=== PATIENT | male | born 1965 | race Caucasian/White ===

== ENCOUNTER 2021-05-09 14:07 | Inpatient (IN) | payer SELFPAY ==
[2021-05-09] MEDS ORDERED: ACETAMINOPHEN 500 MG TAB PO ONE (17:45)
[2021-05-09] MEDS ORDERED: dexAMETHasone 4 MG/ML VIAL IV ONE (17:48)
[2021-05-09] MEDS ORDERED: SODIUM CHLORIDE 0.9% 1000 ML 1,000 ML IV ONE (17:49)
--- NOTE | 2021-05-09 17:50 | XRay Report ---
CHEST 1 VIEW 05/09/2021 5:31 PM INDICATION / CLINICAL INFORMATION: Covid positive ,hypoxia. COMPARISON: None available. FINDINGS: SUPPORT DEVICES: None. HEART / MEDIASTINUM: No significant abnormality. LUNGS / PLEURA: There are low lung volumes. There is minimal parenchymal opacity in the lung bases. N o pneumothorax. ADDITIONAL FINDINGS: None IMPRESSION: 1. There are low lung volumes. There is minimal parenchymal opacity in the lung bases. Signer Name: Patrick Odell MD Signed: 05/09/2021 5:45 PM Workstation Name: [id number]
--- NOTE | 2021-05-09 18:20 | Emergency Department Report ---
- General Chief Complaint: Upper Respiratory Infection Stated Complaint: SENT BY CLINIC FOR COVID Source: patient Mode of arrival: Ambulatory Limitations: Language Barrier - History of Present Illness Initial Comments: translator interpreter used; 55 y/o female present to Ed complain of cough ,fever ,chills x 4 days .Patient was evaluate at [facility] had positive Covid Positive.patient states taking ibuprofen 800 mg x 1 without any relief. Patient is unvaccinated for COVID. Patient denies any chest pain. Patient stated that shortness of breath started today. No acute distress noted .no ill appearance noted. Patient is alert and oriented x4 MD Complaint: fever, cough Onset/Timin -: days(s) Improves With: nothing Worsens With: nothing Context: sick contacts Associated Symptoms: denies other symptoms Treatments Prior to Arrival: none - Related Data Allergies Allergy/AdvReac Type Severity Reaction Status Date / Time No Known Allergies Allergy Unverified 05/09/21 15:19 ED Review of Systems ROS: Stated complaint: SENT BY CLINIC FOR COVID Other details as noted in HPI Constitutional: chills, fever, malaise, weakness Eyes: denies: eye pain, eye discharge, vision change ENT: denies: ear pain, throat pain Respiratory: cough, shortness of breath. denies: wheezing Cardiovascular: denies: chest pain, palpitations Endocrine: no symptoms reported Gastrointestinal: denies: abdominal pain, nausea, diarrhea Genitourinary: denies: urgency, dysuria Musculoskeletal: denies: back pain, joint swelling, arthralgia Skin: denies: rash, lesions Neurological: denies: headache, weakness, paresthesias Psychiatric: denies: anxiety, depression Hematological/Lymphatic: denies: easy bleeding, easy bruising ED Physical Exam - General Limitations: Language Barrier General appearance: alert, in no apparent distress - Head Head exam: Present: atraumatic, normocephalic - Eye Eye exam: Present: normal appearance - ENT ENT exam: Present: mucous membranes moist - Neck Neck exam: Present: normal inspection - Respiratory Respiratory exam: Present: normal lung sounds bilaterally. Absent: respiratory distress, wheezes, rales - Cardiovascular Cardiovascular Exam: Present: regular rate, tachycardia. Absent: systolic murmur, diastolic murmur, rubs, gallop - GI/Abdominal GI/Abdominal exam: Present: soft, normal bowel sounds - Rectal Rectal exam: Present: deferred - Extremities Exam Extremities exam: Present: normal inspection - Back Exam Back exam: Present: normal inspection - Neurological Exam Neurological exam: Present: alert, oriented X3 - Psychiatric Psychiatric exam: Present: normal affect, normal mood - Skin Skin exam: Present: warm, dry, intact, normal color. Absent: rash ED Course Vital Signs 05/09/21 15:18 Temperature 103 F H Pulse Rate 124 H Respiratory 18 Rate Blood Pressure 157/86 [Right] O2 Sat by Pulse 92 Oximetry ED Medical Decision Making - Radiology Data Radiology results: report reviewed [facility] [address] [place] [address] XRay Report Signed Patient: DEAN OSORIO MR# : [id number] : 1965 Acct:[id number] Age/Sex: 55 / M ADM Date: 05/09/21 Loc: ED Attending Dr: Ordering Physician: ADALBERTO PURDY Date of Service: 05/09/21 Procedure(s): XR chest 1V ap Accession Number(s): [id number] cc: ADALBERTO PURDY Fluoro Time In Minutes: CHEST 1 VIEW 05/09/2021 5:31 PM INDICATION / CLINICAL INFORMATION: Covid positive ,hypoxia. COMPARISON: None available. FINDINGS: SUPPORT DEVICES: None. HEART / MEDIASTINUM: No significant abnormality. LUNGS / PLEURA: There are low lung volumes. There is minimal parenchymal opacity in the lung bases. No pneumothorax. ADDITIONAL FINDINGS: None IMPRESSION: 1. There are low lung volumes. There is minimal parenchymal opacity in the lung bases. Signer Name: Patrick Odell MD Signed: 05/09/2021 5:45 PM Workstation Name: [id number] Transcribed By: Dictated By: Patrick Odell MD Electronically Authenticated By: Patrick Odell MD Signed Date/Time: 05/09/21 6019 - Medical Decision Making translator interpreter used; 55 y/o female present to Ed complain of cough ,fever ,chills x 4 days .Patient was evaluate at [facility] had positive Covid Positive.patient states taking ibuprofen 800 mg x 1 without any relief. Patient is unvaccinated for COVID. Patient denies any chest pain. Patient stated that shortness of breath started today. No acute distress noted .no ill appearance noted. Patient is alert and oriented x4 . Patient had a walking O2 sat at 88- 89 percent . Critical care attestation.: If time is entered above; I have spent that time in minutes in the direct care of this critically ill patient, excluding procedure time. ED Disposition Disposition: ADMITTED INPATIENT Is pt being admited?: Yes Condition: Stable Referrals: PRIMARY CARE, [Primary Care Provider] - 3-5 Days
[2021-05-09 18:21] LABS: Hematocrit 45.7 % (35.5-45.6); Hemoglobin 15.3 gm/dl (11.8-15.2); Mean Corpuscular HGB Conc 33 % (32-34); Mean Corpuscular Volume 93 fl (84-94); Platelet Count 179 K/mm3 (140-440); Red Blood Count 4.92 M/mm3 (3.65-5.03)
[2021-05-09] MEDS ORDERED: cefTRIAXone/NS 1 GM/50 ML 1 GM/50 ML BAG IV ONE (18:32)
[2021-05-09 18:49] LABS: Albumin 3.9 g/dL (3.9-5); C-Reactive Protein 34.7 mg/dL (0.00-1.30)
[2021-05-09 18:52] LABS: Band Neutrophils # (Manual) 0.5 K/mm3; Basophils % (Manual) 0 % (0.0-1.8); Eosinophils % (Manual) 0 % (0.0-4.3); Total Cells Counted 100
[2021-05-09 18:53] LABS: Dohle Bodies Rare; Platelet Estimate Consistent w Auto; RBC Morphology Normal; Toxic Granulation 1+
--- NOTE | 2021-05-09 19:30 | History and Physical Report ---
History of Present Illness Chief complaint: I am sick History of present illness: 55 YO Male with no past medical history presents ED for evaluation. Patient reports "I feel sick". Patient states that he had experienced fever, shaking chills, dry cough, diminished sense of smell, diminished sense of taste, malaise, body aches over the past 1 week with worsening symptoms over the past 4 days. Patient underwent coronavirus test as outpatient and was found to be coronavirus positive. Patient transported to [facility] via private vehicle for further care and evaluation of the aforementioned symptoms. The patient was s een and evaluated in the emergency department. All lab and imaging studies reviewed. Patient found to have a pulse oximetry of 88% on room air with exertion which is consistent with acute approximate respiratory failure. Patient found to have a temperature of 103 F, a heart rate in the 120s and respiratory rate in the 30s. Chest x-ray revealed pneumonia complicated by sepsis. Patient admitted to [facility] and initiated on sepsis protocol, pneumonia protocol as well as coronavirus protocol. Patient denies fever but denies chest pain, palpitation, skin rash, trauma, unilateral leg swelling, calf pain, individual/family history of DVT/PE/bleeding/blood clotting disorders. No prior admission for review. No medication listed at time of admission for reconciliation. Advanced care planning conducted in ED. Past History Past Medical History: No medical history, other (See HPI) Past Surgical History: No surgical history, Other (Reviewed) Social history: . denies: smoking, alcohol abuse, prescription drug abuse Family history: hypertension Medications and Allergies Allergies Allergy/AdvReac Type Severity Reaction Status Date / Time No Known Allergies Allergy Unverified 05/09/21 15:19 Active Meds: Active Medications Sodium Chloride (Nacl 0.9% 1000 Ml) 1,000 mls @ 250 mls/hr IV ONCE ONE Stop: 05/09/21 21:48 Last Admin: 05/09/21 18:41 Dose: 250 mls/hr Azithromycin (Zithromax/Ns) 500 mg in 250 mls @ 250 mls/hr IV ONCE ONE; Protocol Stop: 05/09/21 20:31 Review of Systems Constitutional: fever, chills, fatigue, weakness, malaise Ears, nose, mouth and throat: other (Loss of sense of smell, loss of sense of t aste), no ear pain, no tinnitis, no decreased hearing, no nasal congestion, no nasal discharge Cardiovascular: no chest pain, no orthopnea, no palpitations, no rapid/irregular heart beat Respiratory: cough, no cough with sputum, no excessive sputum, no hemoptysis Gastrointestinal: no nausea, no vomiting, no diarrhea Genitourinary Male: no hematuria, no flank pain, no discharge, no urinary frequency, no urinary hesitancy Rectal: no pain, no incontinence, no bleeding Musculoskeletal: no neck stiffness, no shooting arm pain, no arm numbness/tingli ng, no shooting leg pain Integumentary: no rash, no sores, no wounds, no boils Neurological: no head injury, no paralysis, no parathesias, no tingling, no syncope, no tremors Psychiatric: no anxiety, no change in sleep habits, no hypersomnia, no change in libido, no suicidal ideation Endocrine: no heat intolerance, no excessive thirst, no polydipsia, no nocturia, no excessive sweating Hematologic/Lymphatic: no easy bruising, no easy bleeding Allergic/Immunologic: no urticaria, no wheezing Exam - Constitutional Vitals: Temp Pulse Resp BP Pulse Ox 99.4 F 100 H 13 131/75 98 05/09/21 18:22 05/09/21 18:22 05/09/21 18:41 05/09/21 18:22 05/09/21 18:23 General appearance: Present: mild distress - EENT Eyes: Present: PERRL ENT: hearing intact, clear oral mucosa - Neck Neck: Present: supple, normal ROM - Respiratory Respiratory effort: labored, accessory muscle use, stridor Respiratory: bilateral: diminished, rhonchi - Cardiovascular Heart Sounds: Present: S1 & S2. Absent: rub, click - Extremities Extremities: pulses symmetrical, No edema Peripheral Pulses: abnormal (Capillary refill greater than 3.5 seconds) - Abdominal General gastrointestinal: Present: soft, non-tender, non-distended, normal bowel sounds Male genitourinary: Present: normal - Integumentary Integumentary: Present: clear, warm, dry - Musculoskeletal Musculoskeletal: generalized weakness - Psychiatric Psychiatric: appropriate mood/affect, intact judgment & insight - Neurologic Neurologic: CNII-XII intact, moves all extremities Results - Labs CBC & Chem 7: 05/09/21 17:46 05/09/21 18:15 Labs: Abnormal lab results 05/09/21 05/09/21 05/09/21 Range/Units 17:46 18:15 18:15 WBC 27.0 H (4.5-11.0) K/mm3 Hgb 15.3 H (11.8-15.2) gm/dl Hct 45.7 H (35.5-45.6) % Seg Neuts % (Manual) 88.0 H (40.0-70.0) % Lymphocytes % (Manual) 6.0 L (13.4-35.0) % Seg Neutrophils # Man 23.8 H (1.8-7.7) K/mm3 Monocytes # (Manual) 1.1 H (0.0-0.8) K/mm3 D-Dimer 684.91 H (0-234) ng/mlDDU Sodium 133 L (137-145) mmol/L Potassium 3.5 L (3.6-5.0) mmol/L Chloride 94.6 L (98-107) mmol/L BUN 23 H (9-20) mg/dL Glucose 286 H (75-100) mg/dL Ferritin (30.0-300.0) ng/mL Total Bilirubin 1.30 H (0.1-1.2) mg/dL Lactate Dehydrogenase 268 H (91-180) units/L C-Reactive Protein 34.70 H (0.00-1.30) mg/dL 05/09/21 Range/Units 18:15 WBC (4.5-11.0) K/mm3 Hgb (11.8-15.2) gm/dl Hct (35.5-45.6) % Seg Neuts % (Manual) (40.0-70.0) % Lymphocytes % (Manual) (13.4-35.0) % Seg Neutrophils # Man (1.8-7.7) K/mm3 Monocytes # (Manual) (0.0-0.8) K/mm3 D-Dimer (0-234) ng/mlDDU Sodium (137-145) mmol/L Potassium (3.6-5.0) mmol/L Chloride (98-107) mmol/L BUN (9-20) mg/dL Glucose (75-100) mg/dL Ferritin 864.0 H (30.0-300.0) ng/mL Total Bilirubin (0.1-1.2) mg/dL Lactate Dehydrogenase (91-180) units/L C-Reactive Protein (0.00-1.30) mg/dL Assessment and Plan - Patient Problems (1) Sepsis Current Visit: Yes Status: Acute Plan to address problem: Sepsis protocol: CBC, CMP, supplemental oxygen, nebulizer therapy, IV antibiotic therapy, IV fluid resuscitation therapy, serial lactic acid level, blood culture. Maintain mean arterial pressure greater than or equal to 65. Chest x- ray, urinalysis. (2) Pneumonia Current Visit: Yes Status: Acute Plan to address problem: Pneumonia protocol: Chest x-ray, CBC, CMP, supplemental oxygen, pulse oximetry, nebulizer therapy, pulmonary toilet. (3) Acute hypoxemic respiratory failure Current Visit: Yes Status: Acute Plan to address problem: Chest x-ray, supplemental oxygen, pulse oximetry, nebulizer therapy, pulmonary toilet, will consider supplemental oxygen via high flow nasal cannula if patient is unable to maintain pulse oximetry on Puls oxymetry via nasal cannula. (4) Coronavirus infection Current Visit: Yes Status: Acute Plan to address problem: Coronavirus protocol: IV antibiotic therapy, IV steroid therapy, vitamin C therapy, vitamin D therapy, zinc therapy, prophylactic anticoagulation (5) DVT prophylaxis Current Visit: Yes Status: Acute Plan to address problem: SCD to bilateral lower extremities while in bed, prophylactic anticoagulation (6) Advance care planning Current Visit: Yes Status: Acute Plan to address problem: Disease education conducted, care plan discussed, diagnosis discussed, prognosis discussed, patient is full code, patient knowledge understanding agreement with care plan, +30 minutes.
[2021-05-09] MEDS ORDERED: AZITHROMYCIN/NS 500 MG/250 ML 500 MG/250 ML BAG IV ONE (19:32)
[2021-05-09] MEDS ORDERED: ALBUTEROL 2.5 MG/3 ML NEBU IH PRN (19:35)
[2021-05-09] MEDS ORDERED: ACETAMINOPHEN 325 MG TAB PO PRN (19:35)
[2021-05-09] MEDS ORDERED: VANCOMYCIN 1,750 MG in SODIUM CHLORIDE 0.9% 500 ML 500 ML IV ONE (19:35)
[2021-05-09] MEDS ORDERED: SODIUM CHLORIDE 0.9% 1000 ML IV SOLN IV ONE (19:35)
[2021-05-09] MEDS ORDERED: HYDROmorphone 1 MG/1 ML INJ IV PRN ×2 (19:35)
[2021-05-09] MEDS ORDERED: oxyCODONE /ACETAMINOPHEN 5-325MG TAB PO PRN (19:35)
[2021-05-09] MEDS ORDERED: VANCOMYCIN PHARMACY TO DOSE IV SCH (20:00)
[2021-05-09] MEDS: methylPREDNISolone Sod Succinate 40 MG/1 ML INJ IV SCH (21:35)
[2021-05-09] MEDS: CEFEPIME/NS 2 GM/100 ML 2 GM/100 ML BAG IV SCH (21:35)
[2021-05-09] MEDS: HEPARIN 5,000 UNIT/1 ML VIAL SUB-Q SCH (21:35)
[2021-05-09] MEDS: ZINC SULFATE 220 MG CAP PO SCH (21:36)
[2021-05-09] MEDS: ASCORBIC ACID 500 MG TAB PO SCH (21:36)
[2021-05-09] MEDS: VANCOMYCIN 1,750 MG in SODIUM CHLORIDE 0.9% 500 ML 500 ML IV SCH (21:36)
[2021-05-10 05:42] LABS: Hematocrit 44.8 % (35.5-45.6); Mean Corpuscular HGB Conc 34 % (32-34); Mean Corpuscular Volume 94 fl (84-94); Platelet Count 229 K/mm3 (140-440); Red Blood Count 4.77 M/mm3 (3.65-5.03); Red Cell Distribution Width 14.8 % (13.2-15.2)
[2021-05-10 06:02] LABS: BUN/Creatinine Ratio TNR; Blood Urea Nitrogen TNR mg/dL (9-20)
[2021-05-10 06:03] LABS: Alanine Aminotransferase TNR units/L (7-56); Albumin TNR g/dL (3.9-5); Calcium TNR mg/dL (8.4-10.2)
[2021-05-10 06:04] LABS: Hemolysis Index TNR
[2021-05-10 06:29] LABS: Basophils % (Manual) 0 % (0.0-1.8); Eosinophils % (Manual) 0 % (0.0-4.3); Total Cells Counted 100
[2021-05-10 06:30] LABS: Large Platelets Rare; Platelet Estimate Consistent w Auto; RBC Morphology Normal
--- NOTE | 2021-05-10 09:21 | Progress Note ---
Assessment and Plan Assessment and plan: History of present illness: 55 YO Male with no past medical history presents ED for evaluation. Patient reports "I feel sick". Patient states that he had experienced fever, shaking chills, dry cough, diminished sense of smell, diminished sense of taste, malaise, body aches over the past 1 week with worsening symptoms over the past 4 days. Patient underwent coronavirus test as outpatient and was found to be coronavirus positive. Patient transported to [facility] via private vehicle for further care and evaluation of the aforementioned symptoms. The patient was seen and evaluated in the emergency department. All lab and imaging studies reviewed. Patient found to have a pulse oximetry of 88% on room air with exertion which is consistent with acute approximate respiratory failure. Patient found to have a temperature of 103 F, a heart rate in the 120s and respiratory rate in the 30s. Chest x-ray revealed pneumonia complicated by sepsis. Patient admitted to [facility] and initiated on sepsis protocol, pneumonia protocol as well as coronavirus protocol. Patient denies fever but denies chest pain, palpitation, skin rash, trauma, unilateral leg swelling, calf pain, timi vidual/family history of DVT/PE/bleeding/blood clotting disorders. No prior admission for review. No medication listed at time of admission for reconciliation. Advanced care planning conducted in ED. Hospital Course to Date: 05/10/2021:RT PCR pending. Currently off of oxygen. Downgrade to med/surgery. Assessment and Plan: (1) Sepsis Current Visit: Yes Status: Acute Plan to address problem: Sepsis protocol: CBC, CMP, supplemental oxygen, nebulizer therapy, IV antibiotic therapy, IV fluid resuscitation therapy, serial lactic acid level, blood culture. Maintain mean arterial pressure greater than or equal to 65. Chest x- ray, urinalysis. (2) Pneumonia Current Visit: Yes Status: Acute Plan to address problem: Pneumonia protocol: Chest x-ray, CBC, CMP, supplemental oxygen, pulse oximetry, nebulizer therapy, pulmonary toilet. (3) Acute hypoxemic respiratory failure Current Visit: Yes Status: Acute Plan to address problem: Chest x-ray, supplemental oxygen, pulse oximetry, nebulizer therapy, pulmonary toilet, will consider supplemental oxygen via high flow nasal cannula if patient is unable to maintain pulse oximetry on Puls oxymetry via nasal cannula. (4) Coronavirus infection Current Visit: Yes Status: Acute Plan to address problem: Coronavirus protocol: IV antibiotic therapy, IV steroid therapy, vitamin C therapy, vitamin D therapy, zinc therapy, prophylactic anticoagulation (5) DVT prophylaxis Current Visit: Yes Status: Acute Plan to address problem: SCD to bilateral lower extremities while in bed, prophylactic anticoagulation (6) Advance care planning Current Visit: Yes Status: Acute Plan to address problem: Disease education conducted, care plan discussed, diagnosis discussed, prognosis discussed, patient is full code, patient knowledge understanding agreement with care plan, +30 minutes. The high probability of a clinically significant, sudden or life threatening deterioration of the [pulmonary, ID] system(s) required my full and direct attention, intervention and personal management. The aggregate critical care time was [60] minutes. This time is in addition to time spent performing reported procedures but includes the following: [x] Data Review and interpretation [x] Patient assessment and monitoring of vital signs [x] Documentation [x] Medication orders and management History Interval history: NO acute complaints resting comfortably on my exam. Hospitalist Physical - Physical exam Narrative exam: Physical Exam: VITAL SIGNS: Reviewed. GENERAL: The patient appears normally developed, Vital signs as documented. HEAD: No signs of head trauma. EYES: Pupils are equal. Extraocular motions intact. EARS: Hearing grossly intact. MOUTH: Oropharynx is normal. NECK: No adenopathy, no JVD. CHEST: Chest with clear breath sounds bilaterally. No wheezes, rales, or rhonchi. CARDIAC: Regular rate and rhythm. S1 and S2, without murmurs, gallops, or rubs. VASCULAR: No Edema. Peripheral pulses normal and equal in all extremities. ABDOMEN: Soft, non tender and non distended. No rebound or guarding, and no masses palpated. Bowel Sounds normal. MUSCULOSKELETAL: Good range of motion of all major joints. Extremities without clubbing, cyanosis or edema. NEUROLOGIC EXAM: Alert and oriented x 4. no focal sensory or strength deficits. PSYCHIATRIC: Mood normal. SKIN: detail exam as documented in skin assessment - Constitutional Vitals: Temp Pulse Resp BP Pulse Ox 97.6 F 74 18 131/77 94 05/10/21 09:05 05/10/21 08:16 05/10/21 08:16 05/10/21 08:16 05/10/21 08:16 General appearance: Present: mild distress Results - Labs CBC & Chem 7: 05/10/21 04:31 05/10/21 12:04 Labs: Laboratory Last Values WBC 20.9 K/mm3 (4.5-11.0) H 05/10/21 04:31 RBC 4.77 M/mm3 (3.65-5.03) 05/10/21 04:31 Hgb 15.0 gm/dl (11.8-15.2) 05/10/21 04:31 Hct 44.8 % (35.5-45.6) 05/10/21 04:31 MCV 94 fl (84-94) 05/10/21 04:31 MCH 31 pg (28-32) 05/10/21 04:31 MCHC 34 % (32-34) 05/10/21 04:31 RDW 14.8 % (13.2-15.2) 05/10/21 04:31 Plt Count 229 K/mm3 (140-440) 05/10/21 04:31 Add Manual Diff Complete 05/10/21 04:31 Total Counted 100 05/10/21 04:31 Seg Neutrophils % Engineering Geologist 05/10/21 04:31 Seg Neuts % (Manual) 95.0 % (40.0-70.0) H 05/10/21 04:31 Band Neutrophils % 0 % 05/10/21 04:31 Lymphocytes % (Manual) 4.0 % (13.4-35.0) L 05/10/21 04:31 Reactive Lymphs % (Man) 0 % 05/10/21 04:31 Monocytes % (Manual) 1.0 % (0.0-7.3) 05/10/21 04:31 Eosinophils % (Manual) 0 % (0.0-4.3) 05/10/21 04:31 Basophils % (Manual) 0 % (0.0-1.8) 05/10/21 04:31 Metamyelocytes % 0 % 05/10/21 04:31 Myelocytes % 0 % 05/10/21 04:31 Promyelocytes % 0 % 05/10/21 04:31 Blast Cells % 0 % 05/10/21 04:31 Nucleated RBC % Not Reportable 05/10/21 04:31 Seg Neutrophils # Man 19.9 K/mm3 (1.8-7.7) H 05/10/21 04:31 Band Neutrophils # 0.0 K/mm3 05/10/21 04:31 Lymphocytes # (Manual) 0.8 K/mm3 (1.2-5.4) L 05/10/21 04:31 Abs React Lymphs (Man) 0.0 K/mm3 05/10/21 04:31 Monocytes # (Manual) 0.2 K/mm3 (0.0-0.8) 05/10/21 04:31 Eosinophils # (Manual) 0.0 K/mm3 (0.0-0.4) 05/10/21 04:31 Basophils # (Manual) 0.0 K/mm3 (0.0-0.1) 05/10/21 04:31 Metamyelocytes # 0.0 K/mm3 05/10/21 04:31 Myelocytes # 0.0 K/mm3 05/10/21 04:31 Promyelocytes # 0.0 K/mm3 05/10/21 04:31 Blast Cells # 0.0 K/mm3 05/10/21 04:31 WBC Morphology Not Reportable 05/10/21 04:31 Hypersegmented Neuts Not Reportable 05/10/21 04:31 Hyposegmented Neuts Not Reportable 05/10/21 04:31 Hypogranular Neuts Not Reportable 05/10/21 04:31 Smudge Cells Not Reportable 05/10/21 04:31 Toxic Granulation Not Reportable 05/10/21 04:31 Toxic Vacuolation Not Reportable 05/10/21 04:31 Dohle Bodies Not Reportable 05/10/21 04:31 Pelger-Huet Anomaly Not Reportable 05/10/21 04:31 Mariana Rods Not Reportable 05/10/21 04:31 Platelet Estimate Consistent w auto 05/10/21 04:31 Clumped Platelets Not Reportable 05/10/21 04:31 Plt Clumps, EDTA Not Reportable 05/10/21 04:31 Large Platelets Rare 05/10/21 04:31 Giant Platelets Not Reportable 05/10/21 04:31 Platelet Satelliting Not Reportable 05/10/21 04:31 Plt Morphology Comment Not Reportable 05/10/21 04:31 RBC Morphology Normal 05/10/21 04:31 Dimorphic RBCs Not Reportable 05/10/21 04:31 Polychromasia Not Reportable 05/10/21 04:31 Hypochromasia Not Reportable 05/10/21 04:31 Poikilocytosis Not Reportable 05/10/21 04:31 Anisocytosis Not Reportable 05/10/21 04:31 Microcytosis Not Reportable 05/10/21 04:31 Macrocytosis Not Reportable 05/10/21 04:31 Spherocytes Not Reportable 05/10/21 04:31 Pappenheimer Bodies Not Reportable 05/10/21 04:31 Sickle Cells Not Reportable 05/10/21 04:31 Target Cells Not Reportable 05/10/21 04:31 Tear Drop Cells Not Reportable 05/10/21 04:31 Ovalocytes Not Reportable 05/10/21 04:31 Helmet Cells Not Reportable 05/10/21 04:31 [place] Bodies Not Reportable 05/10/21 04:31 [place] Rings Not Reportable 05/10/21 04:31 [place] Cells Not Reportable 05/10/21 04:31 Bite Cells Not Reportable 05/10/21 04:31 Crenated Cell Not Reportable 05/10/21 04:31 Elliptocytes Not Reportable 05/10/21 04:31 Acanthocytes (Spur) Not Reportable 05/10/21 04:31 Rouleaux Not Reportable 05/10/21 04:31 Hemoglobin C Crystals Not Reportable 05/10/21 04:31 Schistocytes Not Reportable 05/10/21 04:31 Malaria parasites Not Reportable 05/10/21 04:31 Vance Bodies Not Reportable 05/10/21 04:31 Hem Pathologist Commnt No 05/10/21 04:31 D-Dimer 684.91 ng/mlDDU (0-234) H 05/09/21 18:15 Sodium TNR 05/10/21 04:31 Potassium TNR 05/10/21 04:31 Chloride TNR 05/10/21 04:31 Carbon Dioxide TNR 05/10/21 04:31 Anion Gap TNR 05/10/21 04:31 BUN TNR 05/10/21 04:31 Creatinine TNR 05/10/21 04:31 Estimated GFR TNR 05/10/21 04:31 BUN/Creatinine Ratio TNR 05/10/21 04:31 Glucose TNR 05/10/21 04:31 Lactic Acid 1.50 mmol/L (0.7-2.0) 05/10/21 01:11 Calcium TNR 05/10/21 04:31 Ferritin 864.0 ng/mL (30.0-300.0) H 05/09/21 18:15 Total Bilirubin TNR 05/10/21 04:31 AST TNR 05/10/21 04:31 ALT TNR 05/10/21 04:31 Alkaline Phosphatase TNR 05/10/21 04:31 Lactate Dehydrogenase 268 units/L (91-180) H 05/09/21 18:15 C-Reactive Protein 34.70 mg/dL (0.00-1.30) H 05/09/21 18:15 Total Protein TNR 05/10/21 04:31 Albumin TNR 05/10/21 04:31 Albumin/Globulin Ratio TNR 05/10/21 04:31 Microbiology: Microbiology 05/09/21 18:15 Peripheral/Venous Blood Culture - Preliminary Culture in Progress 05/09/21 18:19 Peripheral/Venous Blood Culture - Preliminary Culture in Progress Active Medications - Current Medications Current Medications: Generic Name Dose Route Start Last Admin Trade Name Freq PRN Reason Stop Dose Admin Acetaminophen 650 mg 05/09/21 19:35 Acetaminophen 325 Mg Tab PO Q6H PRN Pain, Mild (1-3) Albuterol 2.5 mg 05/09/21 19:35 Albuterol 2.5 Mg/3 Ml Nebu IH Q3HRT PRN Shortness Of Breath Ascorbic Acid 500 mg 05/09/21 22:00 05/09/21 21:36 Ascorbic Acid 500 Mg Tab PO 500 mg BID TRAV Administration Cholecalciferol 1,000 unit 05/10/21 10:00 Cholecalciferol (Vit D3) 1000 Unit (25 Mcg) Tab PO QDAY TRAV Heparin Sodium (Porcine) 5,000 unit 05/09/21 22:00 05/09/21 21:35 Heparin 5,000 Unit/1 Ml Vial SUB-Q 5,000 unit Q12HR TRAV Administration Hydromorphone HCl 0.25 mg 05/09/21 19:35 Hydromorphone 1 Mg/1 Ml Inj IV Q4H PRN Pain, Moderate (4-6) Hydromorphone HCl 0.5 mg 05/09/21 19:35 Hydromorphone 1 Mg/1 Ml Inj IV Q23H PRN Pain , Severe (7-10) Cefepime HCl 2 gm in 100 mls @ 200 mls/hr 05/09/21 22:00 05/09/21 21:35 Cefepime/Ns 2 Gm/100 Ml IV 200 mls/hr Q8H TRAV Administration Protocol Vancomycin HCl 1,750 mg/ 535 mls @ 333 mls/hr 05/09/21 22:00 05/09/21 21:36 Sodium Chloride IV 333 mls/hr Q24H TRAV Administration Protocol Methylprednisolone Sodium Succinate 40 mg 05/09/21 22:00 05/09/21 21:35 Methylprednisolone Sod Succinate 40 Mg/1 Ml Inj IV 40 mg Q8HR TRAV Administration Oxycodone/Acetaminophen 1 tab 05/09/21 19:35 Oxycodone /Acetaminophen 5-325mg Tab PO Q16H PRN Pain, Moderate (4-6) Sodium Chloride 10 ml 05/09/21 22:00 05/09/21 21:35 Sodium Chloride 0.9% 10 Ml Flush Syringe IV 10 ml BID TRAV Administration Sodium Chloride 10 ml 05/09/21 19:35 Sodium Chloride 0.9% 10 Ml Flush Syringe IV PRN PRN LINE FLUSH Zinc Sulfate 220 mg 05/09/21 22:00 05/09/21 21:36 Zinc Sulfate 220 Mg Cap PO 220 mg BID TRAV Administration
[2021-05-10] MEDS: ASCORBIC ACID 500 MG TAB PO SCH ×2 (09:30→22:10)
[2021-05-10] MEDS: CHOLECALCIFEROL (VIT D3) 1000 UNIT (25 mcg) TAB PO SCH (09:30)
[2021-05-10] MEDS: HEPARIN 5,000 UNIT/1 ML VIAL SUB-Q SCH ×2 (09:30→22:10)
[2021-05-10] MEDS: ZINC SULFATE 220 MG CAP PO SCH ×2 (09:30→22:10)
[2021-05-10 13:20] LABS: Alanine Aminotransferase 22 units/L (7-56); Albumin 2.9 g/dL (3.9-5); BUN/Creatinine Ratio 34; Blood Urea Nitrogen 27 mg/dL (9-20); Calcium 8.3 mg/dL (8.4-10.2); Hemolysis Index 8
--- NOTE | 2021-05-10 13:22 | Consultation ---
History of Present Illness - Reason for Consult Consult date: 05/10/21 COVID Requesting physician: MANOLO ARANA - History of Present Illness The patient is a 55-year-old male with no past medical history admitted with fever, chills, dry cough and body aches with worsening shortness of breath over the past 4 days. He tested positive for COVID-19 as an outpatient. Upon evaluation in the ER, had a temperature of 103 F, labs revealed leukocytosis, D-dimer 684, ferritin 864, CRP 34.7. He was hypoxic and placed on nasal cannula. Review of Systems: reviewed in the chart, unable to obtain, minimize risk of transmission Past History Past Medical History: No medical history, other (See HPI) Past Surgical History: No surgical history, Other (Reviewed) Social history: . denies: smoking, alcohol abuse, prescription drug abuse Family history: hypertension Medications and Allergies Allergies Allergy/AdvReac Type Severity Reaction Status Date / Time No Known Allergies Allergy Verified 05/10/21 07:35 Active Meds: Active Medications Acetaminophen (Acetaminophen 325 Mg Tab) 650 mg PO Q6H PRN PRN Reason: Pain, Mild (1-3) Albuterol (Albuterol 2.5 Mg/3 Ml Nebu) 2.5 mg IH Q3HRT PRN PRN Reason: Shortness Of Breath Ascorbic Acid (Ascorbic Acid 500 Mg Tab) 500 mg PO BID [facility] Last Admin: 05/10/21 09:30 Dose: 500 mg Cholecalciferol (Cholecalciferol (Vit D3) 1000 Unit (25 Mcg) Tab) 1,000 unit PO QDAY [facility] Last Admin: 05/10/21 09:30 Dose: 1,000 unit Heparin Sodium (Porcine) (Heparin 5,000 Unit/1 Ml Vial) 5,000 unit SUB-Q Q12HR [facility] Last Admin: 05/10/21 09:30 Dose: 5,000 unit Hydromorphone HCl (Hydromorphone 1 Mg/1 Ml Inj) 0.25 mg IV Q4H PRN PRN Reason: Pain, Moderate (4-6) Hydromorphone HCl (Hydromorphone 1 Mg/1 Ml Inj) 0.5 mg IV Q23H PRN PRN Reason: Pain , Severe (7-10) Cefepime HCl (Cefepime/Ns 2 Gm/100 Ml) 2 gm in 100 mls @ 200 mls/hr IV Q8H [facility]; Protocol Last Admin: 05/09/21 21:35 Dose: 200 mls/hr Vancomycin HCl 1,750 mg/ (Sodium Chloride) 535 mls @ 333 mls/hr IV Q24H [facility]; Protocol Last Admin: 05/09/21 21:36 Dose: 333 mls/hr Methylprednisolone Sodium Succinate (Methylprednisolone Sod Succinate 40 Mg/1 Ml Inj) 40 mg IV Q8HR [facility] Last Admin: 05/09/21 21:35 Dose: 40 mg Oxycodone/Acetaminophen (Oxycodone /Acetaminophen 5-325mg Tab) 1 tab PO Q16H PRN PRN Reason: Pain, Moderate (4-6) Sodium Chloride (Sodium Chloride 0.9% 10 Ml Flush Syringe) 10 ml IV BID [facility] Last Admin: 05/10/21 09:37 Dose: 10 ml Sodium Chloride (Sodium Chloride 0.9% 10 Ml Flush Syringe) 10 ml IV PRN PRN PRN Reason: LINE FLUSH Zinc Sulfate (Zinc Sulfate 220 Mg Cap) 220 mg PO BID [facility] Last Admin: 05/10/21 09:30 Dose: 220 mg Physical Examination - Physical Exam Narrative exam: Physical Exam (reviewed in chart to minimize risk of transmission) Constitutional: deferred Head, Ears, Nose: deferred Eyes: deferred Neck: deferred Oral: deferred Cardiovascular: deferred Respiratory: deferred GI: deferred Musculoskeletal: deferred Skin: deferred Hem/Lymphatic: deferred Psych: deferred Neurological: deferred - Constitutional Vitals: Vital Signs Temp Pulse Resp BP Pulse Ox 98 F 74 15 131/77 97 05/10/21 12:54 05/10/21 08:16 05/10/21 11:48 05/10/21 08:16 05/10/21 11:48 Temperature -Last 24 Hours Temperature 98 F Temperature 97.6 F Temperature 99.4 F Temperature 103 F Results - Labs CBC & Chem 7: 05/10/21 04:31 05/10/21 04:31 Labs: Abnormal lab results 05/09/21 05/09/21 05/09/21 Range/Units 17:46 18:15 18:15 WBC 27.0 H (4.5-11.0) K/mm3 Hgb 15.3 H (11.8-15.2) gm/dl Hct 45.7 H (35.5-45.6) % Seg Neuts % (Manual) 88.0 H (40.0-70.0) % Lymphocytes % (Manual) 6.0 L (13.4-35.0) % Seg Neutrophils # Man 23.8 H (1.8-7.7) K/mm3 Lymphocytes # (Manual) (1.2-5.4) K/mm3 Monocytes # (Manual) 1.1 H (0.0-0.8) K/mm3 D-Dimer 684.91 H (0-234) ng/mlDDU Sodium 133 L (137-145) mmol/L Potassium 3.5 L (3.6-5.0) mmol/L Chloride 94.6 L (98-107) mmol/L BUN 23 H (9-20) mg/dL Glucose 286 H (75-100) mg/dL Ferritin (30.0-300.0) ng/mL Total Bilirubin 1.30 H (0.1-1.2) mg/dL Lactate Dehydrogenase 268 H (91-180) units/L C-Reactive Protein 34.70 H (0.00-1.30) mg/dL 05/09/21 05/10/21 Range/Units 18:15 04:31 WBC 20.9 H (4.5-11.0) K/mm3 Hgb (11.8-15.2) gm/dl Hct (35.5-45.6) % Seg Neuts % (Manual) 95.0 H (40.0-70.0) % Lymphocytes % (Manual) 4.0 L (13.4-35.0) % Seg Neutrophils # Man 19.9 H (1.8-7.7) K/mm3 Lymphocytes # (Manual) 0.8 L (1.2-5.4) K/mm3 Monocytes # (Manual) (0.0-0.8) K/mm3 D-Dimer (0-234) ng/mlDDU Sodium (137-145) mmol/L Potassium (3.6-5.0) mmol/L Chloride (98-107) mmol/L BUN (9-20) mg/dL Glucose (75-100) mg/dL Ferritin 864.0 H (30.0-300.0) ng/mL Total Bilirubin (0.1-1.2) mg/dL Lactate Dehydrogenase (91-180) units/L C-Reactive Protein (0.00-1.30) mg/dL - Imaging and Cardiology Chest x-ray: report reviewed Assessment and Plan Cultures: SARS CoV2 PCR: Positive as outpatient. Pending here. 05/09/2021 blood culture: In process A/P: 55/M with: #Severe sepsis, secondary to bilateral pneumonia: Secondary to COVID-19 #Acute hypoxic respiratory failure: Requiring nasal cannula Recs: -F/U COVID-19 PCR -continue IV/PO Dexamethasone x 10 days -IV remdesivir x 5 days ordered given positive COVID test as outpatient -prophylactic anticoagulation based on d-dimer per hospital protocol -given leucocytosis, continue empiric abx for now f/u cultures -trend ferritin, d-dimer, CRP every 2-3 days Nir Pettit MD, FACP, [facility] O: [phone] F: [phone]
[2021-05-10] MEDS: methylPREDNISolone Sod Succinate 40 MG/1 ML INJ IV SCH ×3 (14:44→23:21)
[2021-05-10] MEDS: CEFEPIME/NS 2 GM/100 ML 2 GM/100 ML BAG IV SCH ×2 (14:45→22:40)
[2021-05-10] MEDS: VANCOMYCIN 1,750 MG in SODIUM CHLORIDE 0.9% 500 ML 500 ML IV SCH (22:10)
[2021-05-11] MEDS: CEFEPIME/NS 2 GM/100 ML 2 GM/100 ML BAG IV SCH ×4 (01:03→23:04)
[2021-05-11] MEDS: methylPREDNISolone Sod Succinate 40 MG/1 ML INJ IV SCH (06:25)
[2021-05-11] MEDS: HEPARIN 5,000 UNIT/1 ML VIAL SUB-Q SCH ×2 (10:46→23:05)
[2021-05-11] MEDS: ZINC SULFATE 220 MG CAP PO SCH (10:46)
[2021-05-11] MEDS: CHOLECALCIFEROL (VIT D3) 1000 UNIT (25 mcg) TAB PO SCH (10:46)
[2021-05-11] MEDS: ASCORBIC ACID 500 MG TAB PO SCH (10:46)
--- NOTE | 2021-05-11 14:35 | Progress Note ---
Assessment and Plan Cultures: SARS CoV2 PCR: Positive as outpatient. Negative here. 05/09/2021 blood culture: no growth A/P: 55/M with: #Severe sepsis, secondary to bilateral pneumonia: Secondary to COVID-19 #Acute hypoxic respiratory failure: Requiring nasal cannula Recs: -COVID negative, agree with stopping steroids and remdesivir -continue Cefepime, Vancomycin -MRSA nasal PCR ordered, if negative, will d/c vancomycin Nir Pettit MD, FACP, [facility] O: [phone] F: [phone] Subjective Date of service: 05/11/21 Interval history: No fever. COVID negative. Objective - Exam Narrative Exam: Physical Exam (reviewed in chart to minimize risk of transmission) Constitutional: deferred Head, Ears, Nose: deferred Eyes: deferred Neck: deferred Oral: deferred Cardiovascular: deferred Respiratory: deferred GI: deferred Musculoskeletal: deferred Skin: deferred Hem/Lymphatic: deferred Psych: deferred Neurological: deferred - Constitutional Vitals: Vital Signs Temp Pulse Resp BP Pulse Ox 98.1 F 87 19 138/77 95 05/11/21 12:30 05/11/21 12:30 05/11/21 12:30 05/11/21 12:30 05/11/21 12:30 Temperature -Last 24 Hours Temperature 98.1 F Temperature 98.3 F Temperature 98.8 F Temperature 97.9 F Temperature 97.8 F - Labs CBC & Chem 7: 05/10/21 04:31 05/10/21 12:04
--- NOTE | 2021-05-11 15:11 | Progress Note ---
Assessment and Plan Assessment and plan: #Sepsis -Leukocytosis improving, afebrile, HR improved -BCx 05/09, NGTD x 24hrs -likely secondary to PNA -will continue vancomycin and cefepime -ID following, assistance appreciated #Acute hypoxic respiratory failure-resolved #Pneumonia -Home oxygen walk test performed, patient did not require oxygen -MRSA PCR ordered -Continue abx as above -Likely secondary to pneumonia -given elevated d-dimer, CTA chest ordered #COVID-19 PUI -Coronavirus PCR negative -Steroids and COVID vitamins discontinued #Hyperglycemia -patient with no hx of diabetes -SSI started -may be secondary to steroids, will order A1C Hospitalist Physical - Constitutional Vitals: Temp Pulse Resp BP Pulse Ox 98.1 F 87 19 138/77 95 05/11/21 12:30 05/11/21 12:30 05/11/21 12:30 05/11/21 12:30 05/11/21 12:30 General appearance: Present: mild distress Results - Labs CBC & Chem 7: 05/10/21 04:31 05/10/21 12:04 Labs: Laboratory Last Values WBC 20.9 K/mm3 (4.5-11.0) H 05/10/21 04:31 RBC 4.77 M/mm3 (3.65-5.03) 05/10/21 04:31 Hgb 15.0 gm/dl (11.8-15.2) 05/10/21 04:31 Hct 44.8 % (35.5-45.6) 05/10/21 04:31 MCV 94 fl (84-94) 05/10/21 04:31 MCH 31 pg (28-32) 05/10/21 04:31 MCHC 34 % (32-34) 05/10/21 04:31 RDW 14.8 % (13.2-15.2) 05/10/21 04:31 Plt Count 229 K/mm3 (140-440) 05/10/21 04:31 Add Manual Diff Complete 05/10/21 04:31 Total Counted 100 05/10/21 04:31 Seg Neutrophils % Archivist 05/10/21 04:31 Seg Neuts % (Manual) 95.0 % (40.0-70.0) H 05/10/21 04:31 Band Neutrophils % 0 % 05/10/21 04:31 Lymphocytes % (Manual) 4.0 % (13.4-35.0) L 05/10/21 04:31 Reactive Lymphs % (Man) 0 % 05/10/21 04:31 Monocytes % (Manual) 1.0 % (0.0-7.3) 05/10/21 04:31 Eosinophils % (Manual) 0 % (0.0-4.3) 05/10/21 04:31 Basophils % (Manual) 0 % (0.0-1.8) 05/10/21 04:31 Metamyelocytes % 0 % 05/10/21 04:31 Myelocytes % 0 % 05/10/21 04:31 Promyelocytes % 0 % 05/10/21 04:31 Blast Cells % 0 % 05/10/21 04:31 Nucleated RBC % Not Reportable 05/10/21 04:31 Seg Neutrophils # Man 19.9 K/mm3 (1.8-7.7) H 05/10/21 04:31 Band Neutrophils # 0.0 K/mm3 05/10/21 04:31 Lymphocytes # (Manual) 0.8 K/mm3 (1.2-5.4) L 05/10/21 04:31 Abs React Lymphs (Man) 0.0 K/mm3 05/10/21 04:31 Monocytes # (Manual) 0.2 K/mm3 (0.0-0.8) 05/10/21 04:31 Eosinophils # (Manual) 0.0 K/mm3 (0.0-0.4) 05/10/21 04:31 Basophils # (Manual) 0.0 K/mm3 (0.0-0.1) 05/10/21 04:31 Metamyelocytes # 0.0 K/mm3 05/10/21 04:31 Myelocytes # 0.0 K/mm3 05/10/21 04:31 Promyelocytes # 0.0 K/mm3 05/10/21 04:31 Blast Cells # 0.0 K/mm3 05/10/21 04:31 WBC Morphology Not Reportable 05/10/21 04:31 Hypersegmented Neuts Not Reportable 05/10/21 04:31 Hyposegmented Neuts Not Reportable 05/10/21 04:31 Hypogranular Neuts Not Reportable 05/10/21 04:31 Smudge Cells Not Reportable 05/10/21 04:31 Toxic Granulation Not Reportable 05/10/21 04:31 Toxic Vacuolation Not Reportable 05/10/21 04:31 Dohle Bodies Not Reportable 05/10/21 04:31 Pelger-Huet Anomaly Not Reportable 05/10/21 04:31 Mariana Rods Not Reportable 05/10/21 04:31 Platelet Estimate Consistent w auto 05/10/21 04:31 Clumped Platelets Not Reportable 05/10/21 04:31 Plt Clumps, EDTA Not Reportable 05/10/21 04:31 Large Platelets Rare 05/10/21 04:31 Giant Platelets Not Reportable 05/10/21 04:31 Platelet Satelliting Not Reportable 05/10/21 04:31 Plt Morphology Comment Not Reportable 05/10/21 04:31 RBC Morphology Normal 05/10/21 04:31 Dimorphic RBCs Not Reportable 05/10/21 04:31 Polychromasia Not Reportable 05/10/21 04:31 Hypochromasia Not Reportable 05/10/21 04:31 Poikilocytosis Not Reportable 05/10/21 04:31 Anisocytosis Not Reportable 05/10/21 04:31 Microcytosis Not Reportable 05/10/21 04:31 Macrocytosis Not Reportable 05/10/21 04:31 Spherocytes Not Reportable 05/10/21 04:31 Pappenheimer Bodies Not Reportable 05/10/21 04:31 Sickle Cells Not Reportable 05/10/21 04:31 Target Cells Not Reportable 05/10/21 04:31 Tear Drop Cells Not Reportable 05/10/21 04:31 Ovalocytes Not Reportable 05/10/21 04:31 Helmet Cells Not Reportable 05/10/21 04:31 [place] Bodies Not Reportable 05/10/21 04:31 [place] Rings Not Reportable 05/10/21 04:31 [place] Cells Not Reportable 05/10/21 04:31 Bite Cells Not Reportable 05/10/21 04:31 Crenated Cell Not Reportable 05/10/21 04:31 Elliptocytes Not Reportable 05/10/21 04:31 Acanthocytes (Spur) Not Reportable 05/10/21 04:31 Rouleaux Not Reportable 05/10/21 04:31 Hemoglobin C Crystals Not Reportable 05/10/21 04:31 Schistocytes Not Reportable 05/10/21 04:31 Malaria parasites Not Reportable 05/10/21 04:31 Vance Bodies Not Reportable 05/10/21 04:31 Hem Pathologist Commnt No 05/10/21 04:31 D-Dimer 684.91 ng/mlDDU (0-234) H 05/09/21 18:15 Sodium 139 mmol/L (137-145) 05/10/21 12:04 Potassium 3.7 mmol/L (3.6-5.0) 05/10/21 12:04 Chloride 105.2 mmol/L (98-107) 05/10/21 12:04 Carbon Dioxide 20 mmol/L (22-30) L 05/10/21 12:04 Anion Gap 18 mmol/L 05/10/21 12:04 BUN 27 mg/dL (9-20) H 05/10/21 12:04 Creatinine 0.8 mg/dL (0.8-1.3) 05/10/21 12:04 Estimated GFR > 60 ml/min 05/10/21 12:04 BUN/Creatinine Ratio 34 % 05/10/21 12:04 Glucose 414 mg/dL (75-100) H 05/10/21 12:04 Lactic Acid 1.50 mmol/L (0.7-2.0) 05/10/21 01:11 Calcium 8.3 mg/dL (8.4-10.2) L 05/10/21 12:04 Ferritin 864.0 ng/mL (30.0-300.0) H 05/09/21 18:15 Total Bilirubin 0.50 mg/dL (0.1-1.2) 05/10/21 12:04 AST 18 units/L (5-40) 05/10/21 12:04 ALT 22 units/L (7-56) 05/10/21 12:04 Alkaline Phosphatase 125 units/L (35-129) 05/10/21 12:04 Lactate Dehydrogenase 268 units/L (91-180) H 05/09/21 18:15 C-Reactive Protein 34.70 mg/dL (0.00-1.30) H 05/09/21 18:15 Total Protein 6.8 g/dL (6.3-8.2) 05/10/21 12:04 Albumin 2.9 g/dL (3.9-5) L 05/10/21 12:04 Albumin/Globulin Ratio 0.7 % 05/10/21 12:04 Procalcitonin 8.62 ng/mL (<0.15) 05/09/21 18:15 Coronavirus (PCR) Negative (Negative) 05/10/21 08:00 Microbiology: Microbiology 05/09/21 18:15 Peripheral/Venous Blood Culture - Preliminary NO GROWTH AFTER 24 HOURS 05/09/21 18:19 Peripheral/Venous Blood Culture - Preliminary NO GROWTH AFTER 24 HOURS Noble/IV: Voiding Method Toilet Active Medications - Current Medications Current Medications: Generic Name Dose Route Start Last Admin Trade Name Freq PRN Reason Stop Dose Admin Acetaminophen 650 mg 05/09/21 19:35 Acetaminophen 325 Mg Tab PO Q6H PRN Pain, Mild (1-3) Albuterol 2.5 mg 05/09/21 19:35 Albuterol 2.5 Mg/3 Ml Nebu IH Q3HRT PRN Shortness Of Breath Heparin Sodium (Porcine) 5,000 unit 05/09/21 22:00 05/11/21 10:46 Heparin 5,000 Unit/1 Ml Vial SUB-Q 5,000 unit Q12HR TRAV Administration Hydromorphone HCl 0.25 mg 05/09/21 19:35 Hydromorphone 1 Mg/1 Ml Inj IV Q4H PRN Pain, Moderate (4-6) Hydromorphone HCl 0.5 mg 05/09/21 19:35 Hydromorphone 1 Mg/1 Ml Inj IV Q23H PRN Pain , Severe (7-10) Cefepime HCl 2 gm in 100 mls @ 200 mls/hr 05/09/21 22:00 05/11/21 13:31 Cefepime/Ns 2 Gm/100 Ml IV 200 mls/hr Q8H TRAV Administration Protocol Vancomycin HCl 1,750 mg/ 535 mls @ 333 mls/hr 05/09/21 22:00 05/10/21 22:10 Sodium Chloride IV 333 mls/hr Q24H TRAV Administration Protocol Oxycodone/Acetaminophen 1 tab 05/09/21 19:35 Oxycodone /Acetaminophen 5-325mg Tab PO Q16H PRN Pain, Moderate (4-6) Sodium Chloride 10 ml 05/09/21 22:00 05/11/21 10:46 Sodium Chloride 0.9% 10 Ml Flush Syringe IV 10 ml BID TRAV Administration Sodium Chloride 10 ml 05/09/21 19:35 Sodium Chloride 0.9% 10 Ml Flush Syringe IV PRN PRN LINE FLUSH
[2021-05-11] MEDS ORDERED: DEXTROSE 50% IN WATER (25GM) 50 ML SYRINGE IV PRN (15:12)
[2021-05-11] MEDS ORDERED: DEXTROSE 10% *Hypoglycemia IV PRN (15:18)
--- NOTE | 2021-05-11 17:00 | Cat Scan Report ---
CTA chest with contrast INDICATION : respiratory failure. TECHNIQUE: Axial imaging performed through the chest, with contrast bolus timing set to maximize opa cification of the pulmonary arteries. 3-plane MIP reformatted images were obtained. All CT scans at this location are performed using CT dose reduction for ALARA by means of automated exposure control. 100 mL of intravenous contrast administered. COMPARISON: Chest x-ray from 2 days prior FINDINGS: Bolus/PTE: Contrast bolus timing is adequate. No filling defect is present to suggest PTE. Mediastinum: Heart and great vessels appear normal. No pathologic mediastinal adenopathy. Lungs: There is respiratory motion artifact with medial left basilar consolidation. No effusion. Upper abdomen: Limited imaging of the upper abdomen shows nothing acute. Bones: Degenerative changes in the spine with nothing acute. IMPRESSION: 1. Negative for PTE. 2. Medial left basilar consolidation suggesting pneumonia. Signer Name: Aldo Bai MD Signed: 05/11/2021 4:56 PM Workstation Name: [id number]
[2021-05-11] MEDS ORDERED: methylPREDNISolone Sod Succinate 40 MG/1 ML INJ IV SCH (18:00)
[2021-05-11] MEDS: INSULIN LISPRO 100 UNIT/ML SUB-Q SCH ×2 (18:25→23:21)
[2021-05-11] MEDS ORDERED: INSULIN GLARGINE 100 UNITS/ML SUB-Q ONE (18:41)
[2021-05-11] MEDS: VANCOMYCIN 1,750 MG in SODIUM CHLORIDE 0.9% 500 ML 500 ML IV SCH (23:04)
[2021-05-12] MEDS: CEFEPIME/NS 2 GM/100 ML 2 GM/100 ML BAG IV SCH (05:51)
[2021-05-12] MEDS: INSULIN LISPRO 100 UNIT/ML SUB-Q SCH ×2 (07:30→11:30)
[2021-05-12 08:26] LABS: Hematocrit 44.8 % (35.5-45.6); Hemoglobin 14.7 gm/dl (11.8-15.2); Mean Corpuscular HGB Conc 33 % (32-34); Mean Corpuscular Volume 95 fl (84-94); Platelet Count 211 K/mm3 (140-440); Red Blood Count 4.74 M/mm3 (3.65-5.03); Red Cell Distribution Width 14.3 % (13.2-15.2)
[2021-05-12] MEDS ORDERED: DEXTROSE 10% *Hypoglycemia IV PRN (08:43)
[2021-05-12 08:46] LABS: Blood Urea Nitrogen 25 mg/dL (9-20); Calcium 8.3 mg/dL (8.4-10.2); Hemolysis Index 38
[2021-05-12] MEDS: HEPARIN 5,000 UNIT/1 ML VIAL SUB-Q SCH (09:12)
[2021-05-12 09:14] LABS: BUN/Creatinine Ratio 42
[2021-05-12] MEDS ORDERED: INSULIN GLARGINE 100 UNITS/ML SUB-Q SCH (10:00)
--- NOTE | 2021-05-12 11:26 | Progress Note ---
Assessment and Plan Cultures: SARS CoV2 PCR: Positive as outpatient. Negative here. 05/09/2021 blood culture: no growth A/P: 55/M with: #Severe sepsis, secondary to bilateral pneumonia: ?Secondary to COVID-19 but te sted negative here. Reportedly positive as outpatient. Did have leucocytosis on admission, so suspect bacterial component. #Acute hypoxic respiratory failure: Requiring nasal cannula Recs: -improved, OK for discharge on PO Ceftin 500 mg BID + PO Doxycycline 100 mg BID x 5 days Will sign off. Nir Pettit MD, FACP, [facility] O: [phone] F: [phone] Subjective Date of service: 05/12/21 Interval history: No fever. Doing well, weaned off oxygen. Slight soreness in throat and slight cough. Objective - Exam Narrative Exam: Physical Exam: Constitutional: Alert, cooperative. No acute distress Head, Ears, Nose: Normocephalic, atraumatic. External ears, nose normal Eyes: Conjunctivae/corneas clear. No icterus. No ptosis. Neck: Supple, no meningeal signs Oral: dentition fair, no thrush Cardiovascular: S1, S2 + Respiratory: Good air entry, clear to auscultation bilaterally GI: Soft, non-tender; bowel sounds normal. No peritoneal signs Musculoskeletal: No pedal edema, no cyanosis. Skin: No rash or abscess Hem/Lymphatic: No palpable cervical or supraclavicular nodes. No lymphangitis Psych: Mood ok. Affect normal Neurological: Awake, alert, oriented. No gross abnormality - Constitutional Vitals: Vital Signs Temp Pulse Resp BP Pulse Ox 97.5 F L 79 16 139/74 97 05/11/21 22:25 05/11/21 22:25 05/11/21 22:25 05/11/21 22:25 05/11/21 22:25 Temperature -Last 24 Hours Temperature 97.5 F Temperature 98.0 F Temperature 98.1 F - Labs CBC & Chem 7: 05/12/21 07:41 05/12/21 07:41 Labs: Abnormal lab results 05/11/21 05/11/21 05/11/21 Range/Units 18:19 19:39 21:42 MCV (84-94) fl BUN (9-20) mg/dL Creatinine (0.8-1.3) mg/dL Glucose 504 H* (75-100) mg/dL POC Glucose 524 H 414 H (70-105) mg/dL Hemoglobin A1c (4-6) % Calcium (8.4-10.2) mg/dL 05/12/21 05/12/21 05/12/21 Range/Units 07:41 07:41 07:41 MCV 95 H (84-94) fl BUN 25 H (9-20) mg/dL Creatinine 0.6 L (0.8-1.3) mg/dL Glucose 275 H (75-100) mg/dL POC Glucose (70-105) mg/dL Hemoglobin A1c 9.5 H (4-6) % Calcium 8.3 L (8.4-10.2) mg/dL 05/12/21 05/12/21 Range/Units 07:54 11:03 MCV (84-94) fl BUN (9-20) mg/dL Creatinine (0.8-1.3) mg/dL Glucose (75-100) mg/dL POC Glucose 249 H 281 H (70-105) mg/dL Hemoglobin A1c (4-6) % Calcium (8.4-10.2) mg/dL
--- NOTE | 2021-05-12 12:56 | Discharge Summary ---
Providers - Providers Date of Admission: 05/09/21 19:35 Attending physician: ISAURO ERVIN MD 05/09/21 19:35 Consult to Physician [CONS] Routine Comment: Consulting Provider: CHINO STOVER Physician Instructions: Reason For Exam: pui Primary care physician: GOLDEN MARTINEZ MD Hospitalization Condition: Stable Disposition: 30 STILL A PATIENT Exam - Constitutional Vitals: Temp Pulse Resp BP Pulse Ox 97.5 F L 79 16 139/74 97 05/11/21 22:25 05/11/21 22:25 05/11/21 22:25 05/11/21 22:25 05/11/21 22:25 Plan Care Plan Goals: Segn nuestros laboratorios, usted tiene diabetes tipo 2. Segn nuestros laboratorios, usted tiene diabetes tipo 2. Deber realizar un seguimiento con un mdico de atencin primaria para un manejo adicional. Le hemos recetado un medicamento llamado metformina que rolf dave vez al da con las comidas. Asegrate de terminar los antibiticos que te dimos para la neumona. Sandra prueba de COVID fue negativa. Puede recibir la vacuna 2 semanas despus de esta estada en el hospital. Follow up with: GOLDEN MARTINEZ MD [Primary Care Provider] - 3-5 Days Prescriptions: cefUROXime [Ceftin] 500 mg PO Q12H 5 Days #20 tab Doxycycline Hyclate [Doxycycline Hyclate TAB] 100 mg PO Q12HR 5 Days #10 tab metFORMIN XR [Glucophage XR] 500 mg PO QDAY 30 Days #30 tab
[2021-05-12 13:43] VITALS: BP 138/82
== END 2021-05-12 15:22 | disposition home or self-care (01) | DRG 871 ==
LOC: EDBD → ED 14:07 → IMCU 19:35 → 3A 05-11 03:08
PROVIDERS: ADMIT Internal Medicine; ATTEND Student in an Organized Health Care Education/Training Program
DX: A41.9 Sepsis, unspecified organism (principal); J96.01 Acute respiratory failure with hypoxia; U07.1 COVID-19; J12.82 Pneumonia due to coronavirus disease 2019; R65.20 Severe sepsis without septic shock; R73.9 Hyperglycemia, unspecified; Z82.49 Family history of ischemic heart disease and other diseases of the circulatory system
CPT/HCPCS: 36415; 71045; 71275; 80048; 80053; 82140; 82728; 82947; 82962; 83036; 83615; 84145; 85007; 85025; 85027; 85379; 86140; 87040; 94760; 99285; G0378; Q0162; Q9967; J0456; J0692; J0696; J1100; J1644; J1815; J2920; J3370; J7030; J7040; U0003